=== PATIENT | female | born 1995 | race Caucasian/White ===

== ENCOUNTER 2025-09-07 14:21 | Emergency (ER) | payer MEDICAID, OTHER ==
[~2025-09-07] VITALS: Ht 170.2 cm; Wt 99.8 kg
[~2025-09-07 14:21] MED LIST: CLIN-188 PO; HYDR-3326 PO
[2025-09-07 14:53] VITALS: BP 100/71
[2025-09-07] MEDS ORDERED: MUPI22OI2 TP (15:12)
[2025-09-07 15:21] VITALS: BP 100/71; O2SAT 99
== END 2025-09-07 15:21 | disposition home or self-care (01) ==
LOC: ER 14:21
DX: B07.0 Plantar wart (principal); F17.200 Nicotine dependence, unspecified, uncomplicated; Z88.7 Allergy status to serum and vaccine
CPT/HCPCS: A4606; A4663